=== PATIENT | male | born 1975 | race Caucasian/White ===

== ENCOUNTER 2020-02-27 09:17 | Outpatient (RCR) | payer BC ==
[~2020-02-27 09:17] MED LIST: CEPHALEXIN500 M1 PO; LORTAB 7.5/5001 TAB PO; NO HOME MEDICATIONS
== END 2020-04-25 08:42 | disposition home or self-care (01) ==
LOC: WSPT 09:17 → WSC 02-28 07:45 → WSPT 04-25 08:42
DX: Z01.818 Encounter for other preprocedural examination (principal); M75.21 Bicipital tendinitis, right shoulder

== ENCOUNTER 2020-05-02 07:00 | Outpatient (RCR) | payer BC | END 2020-05-03 10:00 | disposition home or self-care (01) | LOC: WSPT 07:00 | DX: M75.21 Bicipital tendinitis, right shoulder (principal); Z96.611 Presence of right artificial shoulder joint ==

== ENCOUNTER 2022-05-08 07:31 | Day surgery (SDC) | payer BC ==
[~2022-05-08] VITALS: Ht 175.3 cm; Wt 87.4 kg
[2022-05-08 08:16] VITALS: BP 148/88; PULSE 65; TEMP 97.3
--- NOTE | 2022-05-08 09:06 | NUR ---
DR. MONTEZ IN ROOM. VISITS WITH PATIENT'S
[2022-05-08 09:10] VITALS: BP 148/88; PULSE 60; TEMP 97.2
--- NOTE | 2022-05-08 09:10 | NUR ---
RETURNS TO ROOM 3 PER CART. STAND TRANSFERS TO RECLINER. ALERT ORIENTED. DENIES NAUSEA OR ABD PAIN. IN ROOM.
[2022-05-08 09:25] VITALS: BP 122/92; PULSE 60
--- NOTE | 2022-05-08 09:25 | NUR ---
TOLERATES JUICE AND MUFFIN WITHOUT NAUSEA
[2022-05-08 09:40] VITALS: BP 122/75; PULSE 62
--- NOTE | 2022-05-08 09:40 | NUR ---
DISCHARGE INSTRUCTIONS REVIEWED WITH PATIENT AND VERBALIZING UNDERSTANDINT. COPY OF INSTRUCTIONS AND EDUCATIONAL PAMPHLETS PROVIDED TO PATIENT TO TAKE HOME
== END 2022-05-08 09:50 | disposition home or self-care (01) ==
LOC: SDCO 07:31
DX: Z12.11 Encounter for screening for malignant neoplasm of colon (principal)
CPT/HCPCS: J2704; J7030